=== PATIENT | male | born 1985 | race Caucasian/White ===

== ENCOUNTER 2016-10-26 09:45 | Emergency (ER) | payer BC ==
--- NOTE | 2016-10-26 10:00 | ER Document Report ---
ED Medical Screen (RME) - General Stated Complaint: SINUS PAIN Mode of Arrival: Ambulatory Information source: Patient Notes: Patient presents today with complaints of sinus pressure congestion for the past 5 days. Denies fevers I have greeted and performed a rapid initial assessment of this patient. A comprehensive ED assessment and evaluation of the patient, analysis of test results and completion of the medical decision making process will be conducted by additional ED providers. - Related Data Allergies/Adverse Reactions: No Known Allergies Allergy (Verified 10/26/16 09:56) Physical Exam - Vital signs Vitals: Temp Pulse Resp BP Pulse Ox 98.0 F 86 16 133/90 H 97 10/26/16 09:50 10/26/16 09:50 10/26/16 09:50 10/26/16 09:50 10/26/16 09:50 Course - Vital Signs Vital signs: Temp Pulse Resp BP Pulse Ox 98.0 F 86 16 133/90 H 97 10/26/16 09:50 10/26/16 09:50 10/26/16 09:50 10/26/16 09:50 10/26/16 09:50
--- NOTE | 2016-10-26 10:34 | ER Document Report ---
HPI - HPI Patient complains to provider of: left face pain Onset: Last week Onset/Duration: Gradual Pain Level: 4 Context: 31 yo male with progressive over 5 days, left sided face pain. started as toothache and now extends to left ear. No fever or swelling. Does grind teeth at night. Associated Symptoms: None Exacerbated by: Denies Relieved by: Denies Similar symptoms previously: No Recently seen / treated by doctor: No - ROS ROS below otherwise negative: Yes Systems Reviewed and Negative: Yes All other systems reviewed and negative - DERM Skin Color: Normal Past Medical History - General Information source: Patient - Social History Smoking Status: Current Every Day Smoker Chew tobacco use (# tins/day): Yes Frequency of alcohol use: Occasional Drug Abuse: None Lives with: Family Family History: Reviewed & Not Pertinent Patient has suicidal ideation: No Patient has homicidal ideation: No - Medical History Medical History: Negative Renal/ Medical History: Denies: Hx Peritoneal Dialysis Surgical Hx: Negative Vertical Provider Document - CONSTITUTIONAL Agree With Documented VS: Yes Exam Limitations: No Limitations General Appearance: No Apparent Distress - INFECTION CONTROL TRAVEL OUTSIDE OF THE [place] IN LAST 30 DAYS: No - HEENT HEENT: Normocephalic. negative: Conjuctival Injection, Pharyngeal Erythema, Tympanic Membrane Red, Tympanic Membrane Bulging Notes: tender at TMJ left, no swelling, no nodes. some dental decay without abscess - NECK Neck: Supple. negative: Lymphadenopathy-Left, Lymphadenopathy-Right - RESPIRATORY Respiratory: Breath Sounds Normal, No Respiratory Distress O2 Sat by Pulse Oximetry: 97 - CARDIOVASCULAR Cardiovascular: Regular Rate, Regular Rhythm - NEURO Level of Consciousness: Awake, Alert - DERM Integumentary: Warm, Dry, No Rash Course - Vital Signs Vital signs: Temp Pulse Resp BP Pulse Ox 98.0 F 86 16 133/90 H 97 10/26/16 09:50 10/26/16 09:50 10/26/16 09:50 10/26/16 09:50 10/26/16 09:50 Discharge - Discharge Clinical Impression: Left-sided face pain, Dental decay TMJ arthralgia Qualifiers: Laterality: left Qualified Code(s): M26.622 - Arthralgia of left temporomandibular joint Condition: Good Disposition: HOME, SELF-CARE Instructions: Warm Packs ([facility]), Anti-Inflammatory Medication ([facility]), Penicillin V K ([facility]) Additional Instructions: warm compress to er if worse see dentist Prescriptions: Ibuprofen [Motrin 800 mg Tablet] 800 mg PO Q8HP PRN #30 tablet PRN Reason: Penicillin V Potassium [Penicillin Vk 500 mg Tablet] 500 mg PO QID #40 tablet Tramadol HCl [Ultram 50 mg Tablet] 50 mg PO ASDIR PRN #20 tablet PRN Reason: Forms: Return to Work
[2016-10-26] MEDS ORDERED: ACETAMINOPHEN 325 MG TABLET PO ONE (11:21)
[2016-10-26] MEDS ORDERED: IBUPROFEN 800 MG TABLET PO ONE (11:21)
[2016-10-26 11:43] VITALS: BP 132/88
== END 2016-10-26 11:42 | disposition home or self-care (01) ==
LOC: ER 09:45
DX: K08.9 Disorder of teeth and supporting structures, unspecified (principal); M26.622 Arthralgia of left temporomandibular joint; R51 Headache; F17.210 Nicotine dependence, cigarettes, uncomplicated
CPT/HCPCS: 99283

== ENCOUNTER 2017-04-24 15:09 | Day surgery (SDC) | payer BC ==
[2017-04-23 10:42] LABS: HEMATOCRIT 42.6 % (37.9-51.0); HEMOGLOBIN 14.8 g/dL (13.5-17.0); HGB HCT DIFFERENCE 1.8; MEAN CORPUSCULAR HEMOGLOBIN 29.8 pg (27.0-33.4); MEAN CORPUSCULAR HGB CONC 34.7 g/dL (32.0-36.0); MEAN CORPUSCULAR VOLUME 86 fl (80-97); RED BLOOD COUNT 4.97 10^6/uL (4.35-5.55); RED CELL DISTRIBUTION WIDTH 13.4 % (11.5-14.0); WHITE BLOOD COUNT 6.6 10^3/uL (4.0-10.5)
[~2017-04-24 15:09] MED LIST: ACETAMINOPHEN 100 ML IV ONE; ACETAMINOPHEN 325 MG TABLET PO PRN; BUPIVACAINE HCL 0.25 % INJ/PF (2.5 MG/1 ML) 30 ML VIAL ONE; CEFAZOLIN 1 GM/D5W RTU 1 GM/50 ML RTUPB IV PRN; CEFAZOLIN SODIUM 2 GM in DEXTROSE 5%-WATER 100 ML IV PRN; DEXAMETHASONE SOD PHOSPHATE INJ 4 MG/1 ML VIAL ONE; FENTANYL CITRATE INJ/PF 250 MCG/5 ML AMPULE ONE; GLYCOPYRROLATE INJ 0.4 MG/2 ML VIAL ONE; LACTATED RINGERS 1000 ML IV PRN; LIDOCAINE 0.5% INJ-PF (5 MG/ML) 50 ML SDV SUBCUT PRN; LIDOCAINE 2% INJ-PF (20 MG/ML) 10 ML AMPUL ONE; MIDAZOLAM 2 MG/2 ML INJ ONE; ONDANSETRON HCL INJ/PF 4 MG/2 ML SDV ONE; PROPOFOL INJ 200 MG/20 ML VIAL IV ONE
[2017-04-24] MEDS ORDERED: CEFAZOLIN 1 GM/D5W RTU 1 GM/50 ML RTUPB IV ONE (15:35)
[2017-04-24] MEDS ORDERED: FENTANYL CITRATE INJ/PF 100 MCG/2 ML AMPUL IV PRN ×3 (16:22)
[2017-04-24] MEDS ORDERED: MEPERIDINE HCL/PF INJ 25 MG/1 ML DISP.SYRIN IV PRN (16:22)
[2017-04-24] MEDS ORDERED: OXYCODONE-ACETAMINOPHEN 5-325 MG TABLET PO PRN ×3 (16:22→17:48)
[2017-04-24] MEDS ORDERED: MORPHINE SULFATE 10 MG/ML INJ IV PRN (16:22)
[2017-04-24] MEDS ORDERED: ONDANSETRON HCL INJ/PF 4 MG/2 ML SDV IV PRN ×2 (16:22→17:48)
[2017-04-24] MEDS ORDERED: DIPHENHYDRAMINE HCL 50 MG/ML VIAL IV PRN (16:22)
[2017-04-24] MEDS ORDERED: PROMETHAZINE HCL INJ 25 MG/1 ML VIAL IV PRN ×2 (16:22)
[2017-04-24] MEDS ORDERED: BUPIVACAINE HCL 0.25 % INJ/PF (2.5 MG/1 ML) 30 ML VIAL INJ ONE (16:27)
--- NOTE | 2017-04-24 17:39 | Operative Report ---
Operative Report DATE OF SURGERY: 04/24/17 PREOPERATIVE DIAGNOSIS: Right inguinal hernia POSTOPERATIVE DIAGNOSIS: Right indirect inguinal hernia OPERATION: Right inguinal hernia repair with mesh SURGEON: BUNNY GARCIA ANESTHESIA: GA TISSUE REMOVED OR ALTERED: Hernia sac and cord lipoma COMPLICATIONS: None ESTIMATED BLOOD LOSS: Minimal INTRAOPERATIVE FINDINGS: Right indirect inguinal hernia PROCEDURE: Informed consent was obtained. Patient was brought to the operating room and placed on the operating room table in the supine position. After satisfactory induction of general anesthesia patient's abdomen and right groin were prepped and draped in the usual sterile fashion. Local anesthetic was administered. A transverse right groin incision was made. Dissection was carried down and the external oblique was opened along its fascial fibers thus opening the external inguinal ring. The cord structures were mobilized at the pubic tubercle. Dissection at the anterior aspect of the cord revealed an indirect inguinal hernia sac. There was an associated cord lipoma which was dissected to the level of the internal ring and clamped divided and excised and tied. The hernia sac was opened revealing no incarcerated contents. The hernia sac was thick with preperitoneal fat. High ligation of the sac was performed at the level of the internal ring and the sac was excised. Mesh repair was then performed with [employer]idien pro-floor attendant mesh the sling ends were brought back together in a sling-like configuration thus re-creating the internal inguinal ring and allowing the egress of the cord structures. A single fixation suture was placed at the pubic tubercle. The mesh laid flat with excellent coverage. Hemostasis appeared excellent. Marcaine was injected. Of note the iliohypogastric nerve would have been in the way of the mesh repair therefore it was taken by clamping dividing and tying. External oblique was closed over the repair and the cord structures using running Vicryl suture. Choco's fascia was closed with interrupted Vicryl sutures. Skin was closed with subcuticular running Monocryl suture. Patient tolerated procedure well with no apparent complications and was taken to the recovery area in stable condition.
[2017-04-24] MEDS ORDERED: RINGERS SOLUTION,LACTATED 1,000 ML IV PRN (17:48)
--- NOTE | 2017-04-24 17:48 | PDOC DISCHARGE SUMMARY ---
Discharge Summary (SDC) - Discharge Final Diagnosis: Right inguinal hernia Date of Surgery: 04/24/17 Discharge Date: 04/24/17 Condition: Good Treatment or Instructions: Right inguinal hernia repair with mesh. May discharge patient home when met discharge criteria. Follow-up with me in 2 weeks. Stay active but avoid strenuous activity. May shower in 2 days. Keep Steri-Strips on. Prescriptions: Oxycodone HCl/Acetaminophen [Percocet 5-325 mg Tablet] 1 - 2 tab PO ASDIR PRN # 30 tablet PRN Reason: Discharge Diet: As Tolerated Discharge Activity: Activity As Tolerated - Active but avoid strenuous activity. May shower in 2 days. Report the Following to Your Physician Immediately: Fever over 101 Degrees, Unusual Bleeding, Redness, Drainage-Foul Smelling
[2017-04-24] MEDS ORDERED: FENTANYL CITRATE INJ/PF 100 MCG/2 ML AMPUL ONE (17:53)
[2017-04-24 19:31] VITALS: BP 154/96
== END 2017-04-24 19:30 | disposition home or self-care (01) ==
LOC: OROUT 15:09
PROVIDERS: ATTEND Surgery
PROC: 0YU50JZ Supplement Right Inguinal Region with Synthetic Substitute, Open Approach (ICD-10-PCS; principal; 2017-04-24 17:30)
DX: K40.90 Unilateral inguinal hernia, without obstruction or gangrene, not specified as recurrent (principal); D17.6 Benign lipomatous neoplasm of spermatic cord; Z72.0 Tobacco use
CPT/HCPCS: 36415; 85027; 88302 ×2; 49505; C1781; J2250; J0690; J1100; J3010 ×2; J2405; J2704; J3490; J0131; 830

== ENCOUNTER 2017-04-26 23:07 | Emergency (ER) | payer BC ==
--- NOTE | 2017-04-27 01:47 | ER Document Report ---
ED General - General Chief Complaint: Post Surgical Pain Stated Complaint: POST SURGICAL PROBLEM Time Seen by Provider: 04/27/17 01:30 Mode of Arrival: Ambulatory Information source: Patient Notes: 31 year old male presents to ED for right-sided swelling and bruising to his scrotum after a hernia repair on Sunday. Patient states he was not supposed to look at the area or shower for 24 hours so today this afternoon when he got in the shower he noticed it was bruised and swollen. Patient is able to get up walk around freely states the pain is not that much that he went back to work yesterday. TRAVEL OUTSIDE OF THE [place] IN LAST 30 DAYS: No - HPI Onset: Other - Noticed swelling today the surgery was on Sunday at 1630 Quality of pain: Achy Severity: Moderate Pain Level: 2 Associated symptoms: Other - Bruising and swelling to his right scrotal area after surgery on Sunday Exacerbated by: Denies Relieved by: Denies Similar symptoms previously: No Recently seen / treated by doctor: Yes - Related Data Allergies/Adverse Reactions: No Known Allergies Allergy (Verified 04/24/17 15:20) Past Medical History - General Information source: Patient - Social History Smoking Status: Current Some Day Smoker Cigarette use (# per day): Yes Chew tobacco use (# tins/day): No Smoking Education Provided: Yes - less than 2 min Frequency of alcohol use: Social Drug Abuse: None Occupation: instructor Lives with: Family Family History: Reviewed & Not Pertinent Patient has suicidal ideation: No Patient has homicidal ideation: No - Past Medical History Cardiac Medical History: Reports: None Pulmonary Medical History: Reports: Hx Bronchitis EENT Medical History: Reports: None Neurological Medical History: Reports: None Endocrine Medical History: Reports: None Renal/ Medical History: Reports: None Malignancy Medical History: Reports None GI Medical History: Reports: None Musculoskeltal Medical History: Reports None Skin Medical History: Reports None Psychiatric Medical History: Reports: None Traumatic Medical History: Reports: None Infectious Medical History: Reports: None Surgical Hx: Negative Past Surgical History: Reports: None - Immunizations Immunizations up to date: Yes Hx Diphtheria, Pertussis, Tetanus Vaccination: Yes - Tetanus "years ago" Review of Systems - Review of Systems Constitutional: No symptoms reported EENT: No symptoms reported Cardiovascular: No symptoms reported Respiratory: No symptoms reported Gastrointestinal: No symptoms reported Genitourinary: No symptoms reported Male Genitourinary: Other - Bruising and swelling to the right scrotal area after hernia repair on Sunday Musculoskeletal: No symptoms reported Skin: No symptoms reported Hematologic/Lymphatic: No symptoms reported Neurological/Psychological: No symptoms reported Physical Exam - Vital signs Vitals: Temp Pulse Resp BP Pulse Ox 98.1 F 62 20 148/84 H 98 04/26/17 23:09 04/26/17 23:09 04/26/17 23:09 04/26/17 23:09 04/26/17 23:09 Interpretation: Normal - General General appearance: Appears well, Alert - HEENT Head: Normocephalic, Atraumatic Eyes: Normal Pupils: PERRL - Respiratory Respiratory status: No respiratory distress Chest status: Nontender Breath sounds: Normal Chest palpation: Normal - Cardiovascular Rhythm: Regular Heart sounds: Normal auscultation Murmur: No - Abdominal Inspection: Normal Distension: No distension Bowel sounds: Normal Tenderness: Nontender Organomegaly: No organomegaly - Genitourinary Tenderness: Nontender - Minimal tenderness to the left scrotum with bruising no swelling noted. Scrotum is loose no redness no firmness. Cremasteric reflex: Normal Scrotum: Other - Mild bruising after a hernia repair. No: Swelling, Redness, Hot to touch - Back Back: Normal, Nontender - Extremities General upper extremity: Normal inspection, Nontender, Normal color, Normal ROM , Normal temperature General lower extremity: Normal inspection, Nontender, Normal color, Normal ROM , Normal temperature, Normal weight bearing. No: Maria Del Carmen's sign - Neurological Neuro grossly intact: Yes Cognition: Normal Orientation: AAOx4 [place] Coma Scale Eye Opening: Spontaneous [place] Coma Scale Verbal: Oriented [place] Coma Scale Motor: Obeys Commands [place] Coma Scale Total: 15 Speech: Normal Motor strength normal: LUE, RUE, LLE, RLE Sensory: Normal - Psychological Associated symptoms: Normal affect, Normal mood - Skin Skin Temperature: Warm Skin Moisture: Dry Skin Color: Normal Course - Vital Signs Vital signs: Temp Pulse Resp BP Pulse Ox 97.7 F 60 12 142/93 H 99 04/27/17 03:34 04/27/17 03:34 04/27/17 03:34 04/27/17 03:34 04/27/17 03:34 Discharge - Discharge Clinical Impression: Ecchymosis right scrotum after hernia repair Disposition: HOME, SELF-CARE Additional Instructions: He presents today for swelling and bruising to the right scrotal area after hernia repair on Sunday. No swelling noted to the right scrotum is the normal expected bruising noted To decrease the risk of swelling wear a jock strap or previous to decrease in motion and hanging down of your scrotum. Acetaminophen Acetaminophen may be taken for pain relief or fever control. It's much safer than aspirin, offering a wider range of "safe" dosages. It is safe during . Some brand names are Tylenol, Panadol, Datril, Anacin 3, Tempra, and Liquiprin. Acetaminophen can be repeated every four hours. The following are maximum recommended dosages: WEIGHT Dose Drops Elixir Chewable( 80mg) (LBS.) drprs=droppers tsp=teaspoon 6 40 mg .4 ml (1/2) 6-11 80 mg .8 ml (full) 1/2 tsp 1 tab 12-16 120 mg 1 1/2 drprs 3/4 tsp 1 1/2 tabs 17-23 160 mg 2 drprs 1 tsp 2 tabs 24-30 240 mg 3 drprs 1 1/2 tsp 3 tabs 30-35 320 mg 2 tsp 4 tabs 36-41 360 mg 2 1/4 tsp 4 1 /2 tabs 42-47 400 mg 2 1/2 tsp 5 tabs 48-53 480 mg 3 tsp 6 tabs 54-59 520 mg 3 1/4 tsp 6 1 /2 tabs 60-64 560 mg 3 1/2 tsp 7 tabs 65-70 600 mg 3 3/4 tsp 7 1 /2 tabs 71-76 640 mg 4 tsp 8 tabs 77-82 720 mg 4 1/2 tsp 9 tabs 83-88 800 mg 5 tsp 10 tabs >89 pounds or adults 650 mg to 900 mg Acetaminophen can be repeated every four hours. Maximum daily dose not to exceed 4000 mg. These maximum recommended dosages are slightly higher than the dosages written on the product container, but these dosages are very safe and well below the toxic dosage for acetaminophen. FOLLOW-UP CARE: Follow-up with your surgeon if you continue to have concern. If you have been referred to a physician for follow-up care, call the physician s office for an appointment as you were instructed or within the next two days. If you experience worsening or a significant change in your symptoms, notify the physician immediately or return to the Emergency Department at any time for re-evaluation. Forms: Elevated Blood Pressure, Smoking Cessation Education Referrals: BUNNY GARCIA MD [ACTIVE STAFF] - Follow up as needed
[2017-04-27 03:40] VITALS: BP 142/93
== END 2017-04-27 02:21 | disposition home or self-care (01) ==
LOC: ER 23:07
DX: S30.201A Contusion of unspecified external genital organ, male, initial encounter (principal); G89.18 Other acute postprocedural pain; N50.89 Other specified disorders of the male genital organs; Z98.890 Other specified postprocedural states; F17.210 Nicotine dependence, cigarettes, uncomplicated; X58.XXXA Exposure to other specified factors, initial encounter
CPT/HCPCS: 99283

== ENCOUNTER 2020-02-24 13:30 | Emergency (ER) | payer SELFPAY ==
[2020-02-24 13:37] VITALS: BP 148/95
[2020-02-24] MEDS ORDERED: FAMOTIDINE 20 MG TABLET PO ONE (14:00)
[2020-02-24] MEDS ORDERED: LORATADINE 10 MG TABLET PO ONE (14:00)
[2020-02-24] MEDS ORDERED: PREDNISONE 20 MG TABLET PO ONE (14:00)
--- NOTE | 2020-02-24 14:06 | ER Document Report ---
ED Skin Rash/Insect Bite/Abscs - General Chief Complaint: Skin Problem Stated Complaint: SKIN ISSUE Time Seen by Provider: 02/24/20 13:59 Primary Care Provider: [facility] [Provider Group] - Follow up as needed [facility] [Provider Group] - Follow up as needed [facility] [Provider Group] - Follow up as needed DAWIT MCLEAN MD [ACTIVE STAFF] - Follow up as needed Mode of Arrival: Ambulatory Information source: Patient Notes: 34-year-old male presented to ED for complaint of poison santa to both arms both legs little bit on his face since last week. He states it is very itchy. He states he has been using calamine lotion and is not getting any better. He is alert oriented respirations regular and unlabored speaking in full sentences. TRAVEL OUTSIDE OF THE [place] IN LAST 30 DAYS: No - HPI Patient complains to provider of: Skin rash/lesion Onset: Last week Onset/Duration: Gradual Quality of pain: No pain Severity: None Pain Level: Denies Skin Character: Rash Quality of rash: Itchy Identify cause: Yes - Poison santa Exacerbated by: Denies Relieved by: Denies Similar symptoms previously: Yes Recently seen / treated by doctor: No - Related Data Allergies/Adverse Reactions: No Known Allergies Allergy (Verified 02/24/20 13:59) Past Medical History - General Information source: Patient - Social History Smoking Status: Never Smoker Cigarette use (# per day): No Chew tobacco use (# tins/day): Yes Smoking Education Provided: Yes Frequency of alcohol use: Heavy Drug Abuse: None Family History: Reviewed & Not Pertinent - Past Medical History Cardiac Medical History: Reports: None Pulmonary Medical History: Reports: Hx Bronchitis EENT Medical History: Reports: None Neurological Medical History: Reports: None Endocrine Medical History: Reports: None Renal/ Medical History: Reports: None Malignancy Medical History: Reports None GI Medical History: Reports: None Musculoskeletal Medical History: Reports None Skin Medical History: Reports None Psychiatric Medical History: Reports: None Traumatic Medical History: Reports: None Infectious Medical History: Reports: None Surgical Hx: Negative Past Surgical History: Reports: None - Immunizations Immunizations up to date: Yes Hx Diphtheria, Pertussis, Tetanus Vaccination: No Review of Systems - Review of Systems Constitutional: No symptoms reported EENT: No symptoms reported Cardiovascular: No symptoms reported Respiratory: No symptoms reported Gastrointestinal: No symptoms reported Genitourinary: No symptoms reported Male Genitourinary: No symptoms reported Musculoskeletal: No symptoms reported Skin: Rash Hematologic/Lymphatic: No symptoms reported Neurological/Psychological: No symptoms reported -: Yes All other systems reviewed and negative Physical Exam - Vital signs Vitals: Temp Pulse Resp BP Pulse Ox 98.3 F 71 16 148/95 H 99 02/24/20 13:36 02/24/20 13:36 02/24/20 13:36 02/24/20 13:36 02/24/20 13:36 Interpretation: Normal - General General appearance: Appears well, Alert - HEENT Head: Normocephalic, Atraumatic Eyes: Normal Pupils: PERRL - Respiratory Respiratory status: No respiratory distress Chest status: Nontender Breath sounds: Normal Chest palpation: Normal - Cardiovascular Rhythm: Regular Heart sounds: Normal auscultation Murmur: No - Abdominal Inspection: Normal Distension: No distension Bowel sounds: Normal Tenderness: Nontender Organomegaly: No organomegaly - Back Back: Normal, Nontender - Extremities General upper extremity: Normal inspection, Nontender, Normal color, Normal ROM, Normal temperature General lower extremity: Normal inspection, Nontender, Normal color, Normal ROM, Normal temperature, Normal weight bearing. No: Maria Del Carmen's sign - Neurological Neuro grossly intact: Yes Cognition: Normal Orientation: AAOx4 Marvin Coma Scale Eye Opening: Spontaneous Marvin Coma Scale Verbal: Oriented Marysol Coma Scale Motor: Obeys Commands Marvin Coma Scale Total: 15 Speech: Normal Motor strength normal: LUE, RUE, LLE, RLE Sensory: Normal - Psychological Associated symptoms: Normal affect, Normal mood - Skin Skin Temperature: Warm Skin Moisture: Dry Skin Color: Normal Skin irregularity: Rash Location of irregularity: Face, Extremities Character of irregularity: Vesicular - Poison santa Course - Re-evaluation Re-evalutation: 02/24/20 14:08 Discussed treatment for poison santa with patient written ductions given for poison santa. Patient was started on steroids at this time given Claritin and Pepcid and will be discharged home with a prescription for steroids. - Vital Signs Vital signs: Temp Pulse Resp BP Pulse Ox 98.3 F 71 16 148/95 H 99 02/24/20 14:02 02/24/20 13:36 02/24/20 13:36 02/24/20 13:36 02/24/20 13:36 Discharge - Discharge Clinical Impression: Poison santa dermatitis Condition: Stable Disposition: HOME, SELF-CARE Additional Instructions: Poison Santa Poison santa and poison oak can cause an itchy rash. This is called contact dermatitis. It's an allergy to an oil in the plant's leaves. The oil can be spread from clothing to skin, from pets to humans, or from one spot on the body to another. Washing thoroughly with soap immediately after exposure can prevent the rash. (Clothing should be washed as well.) If the oil is not removed, an itchy rash develops a few days after the exposure. Blisters may develop. Two to three weeks may be required for healing. Generally, treatment consists of: (1) an immediate thorough washing with soap to remove the oil, (2) application of a cortisone cream, and (3) antihistamines for itching. If the reaction is particularly severe, oral cortisone medicine may be required. If there are oozing areas, these can be soaked in epsom salts or Jessica's solution. Call the doctor if the rash worsens despite treatment, or if signs of infection occur such as spreading redness, red streaks, swollen glands, swelling, or fever. ACUTE ALLERGIC REACTION: Your symptoms are due to an allergic reaction. Allergy can cause hives, swelling of the hands, feet, and face, hoarseness, and difficulty swallowing or breathing. It may be due to exposure to medication, animal dander, foods, infection, or insect bites. Medication is a common cause, even when prior use of this same medication caused no problems. Acute treatment may include adrenalin and antihistamines. Usually, the specific allergic agent can't be identified unless repeated episodes occur. Home treatment includes the following: (1) Stop any suspicious medications. This will be discussed with you. (2) Oral antihistamines for the next four to five days. Example, diphenhydramine (Benadryl) every four hours. (3) You may also use cimetidine (Tagamet), ranitidine (Zantac), or famotidine (Pepcid) every four hours if diphenhydramine is not controlling itching and hives. (4) Avoid aspirin until the hives completely disappear. (5) Avoid hot baths or showers until the hives are completely gone. Call the doctor if faintness, difficulty swallowing, tightness in the chest, or wheezing occurs. STEROID MEDICATION: You have been given a medicine of the cortisone/steroid class. This medication is used to control inflammation or allergy. It is usually only given for a short period of time, until the acute process subsides. There are usually no side effects from short-term use of cortisone-like medications. Some persons feel an increased sense of well-being and are not sleepy at bedtime. Long-term use of cortisone medications is best avoided, unless required for a severe condition. If your condition does not remit, or relapses after the course of corticosteroid medication, you should consult your physician. ACID-SUPPRESSING MEDICATION: You have a prescription for medicine which reduces the stomach's secretion of acid. Examples include Zantac, Tagament, and Pepcid. These drugs are often used to allow healing of ulcers or esophagitis. They may be needed to prevent recurrence of ulcers in some patients, or to prevent damage from acid reflux in the esophagus. Take all medication as prescribed, even after the pain is gone. Regular antacids may be added as needed if you have symptoms while taking this medicine. These medications sometimes are prescribed for allergic reactions because they have anti-histaminic effects and relieve the rash and itching of the reaction. There are usually no side effects from this medication. But, in rare cases and particularly in the elderly, serious problems can occur. Contact your doctor if there is fever, rash, hallucinations, confusion, or unusual bruising. Contact your doctor at once if you develop lightheadedness, black or bloody stool, or bloody vomitus. ANTIHISTAMINES: An antihistamine has been given and/or prescribed to control your symptoms. Antihistamines are used for many reasons, including itching, watering eyes, runny nose, allergic swelling, hives, and insect stings. Antihistamines may cause drowsiness, especially with the first dose. Do not operate machinery or drive while under the effects of the medication. Other common side effects include dry mouth and eyes. In older persons, antihistamines can occasionally cause urinary retention, constipation, and trouble focusing the eyes. Do not combine the medication with alcohol, or with any other medication without talking to your doctor. USE OF DIPHENHYDRAMINE: The use of diphenhydramine (Benadryl) has been recommended to control allergic symptoms. The 25 mg strength is available over- the-counter, as well as the elixir. This antihistamine is used for many symptoms. It's useful for itching, watering eyes and nose, allergic swelling, hives, and insect stings. The medication can be repeated four times daily. Age Elixir (12.5 mg/tsp) 25 mg pill 2-3 yr 1/2 tsp 4-8 yr 1 tsp 9-14 yr 2 tsp one tab adult 1-2 tabs Antihistamines may cause drowsiness, especially with the first dose. Do not operate machinery or drive while under the effects of the medication. Do not combine the medication with alcohol, or with any other medication without talking to your doctor. FOLLOW-UP CARE: If you have been referred to a physician for follow-up care, call the physicians office for an appointment as you were instructed or within the next two days. If you experience worsening or a significant change in your symptoms, notify the physician immediately or return to the Emergency Department at any time for re-evaluation. Prescriptions: Prednisone [Deltasone 10 mg Tablet] 10 mg PO ASDIR PRN #21 tablet PRN Reason: Forms: Elevated Blood Pressure, Smoking Cessation Education Referrals: [facility] [Provider Group] - Follow up as needed [facility] [Provider Group] - Follow up as needed [facility] [Provider Group] - Follow up as needed DAWIT MCLEAN MD [ACTIVE STAFF] - Follow up as needed
== END 2020-02-24 14:16 | disposition home or self-care (01) ==
LOC: ER 13:30
DX: L23.7 Allergic contact dermatitis due to plants, except food (principal)
CPT/HCPCS: 99282; J7512